=== PATIENT | male | born 2000 | race Two or more races ===

== ENCOUNTER 2022-02-02 10:55 | Emergency (ER) | payer MEDICAID ==
[~2022-02-02] VITALS: Ht 188 cm; Wt 111.3 kg
[2022-02-02] MEDS ORDERED: IBUP800T27 PO (13:13)
[2022-02-02 13:17] VITALS: BP 143/79
== END 2022-02-02 13:20 | disposition home or self-care (01) ==
LOC: ER 11:07
DX: S83.92XA Sprain of unspecified site of left knee, initial encounter (principal); Z79.1 Long term (current) use of non-steroidal anti-inflammatories (NSAID); X50.1XXA Overexertion from prolonged static or awkward postures, initial encounter; Y93.66 Activity, soccer; Y92.89 Other specified places as the place of occurrence of the external cause; Y99.8 Other external cause status
CPT/HCPCS: 73562